=== PATIENT | female | born 1940 | race Caucasian/White ===

== ENCOUNTER 2020-09-15 06:33 | Inpatient (IN) | payer MEDICARE ==
[2020-09-15] MEDS ORDERED: Isosulfan Blue 5 ML SDV ONE (06:43)
[2020-09-15] MEDS ORDERED: Acetaminophen 500 MG Tab PO ONE (06:45)
[2020-09-15] MEDS ORDERED: Dextrose 5%-Lactated Ringers 1,000 ML IV SCH (07:00)
[2020-09-15] MEDS ORDERED: Glycopyrrolate 0.2 MG/ML 5 ML MDV ONE (07:11)
[2020-09-15] MEDS ORDERED: Succinylcholine 200 MG/10 ML MDV ONE (07:11)
[2020-09-15] MEDS ORDERED: fentaNYL 250 MCG/5 ML SDV ONE (07:11)
[2020-09-15] MEDS ORDERED: Neostigmine Methylsulfate 1 MG/ML 5 ML Syringe ONE (07:11)
[2020-09-15] MEDS ORDERED: Propofol 200 MG/20 ML SDV ONE (07:11)
[2020-09-15] MEDS ORDERED: Rocuronium 50 MG/5 ML Vial ONE (07:11)
[2020-09-15] MEDS ORDERED: Dexamethasone 4 MG/ML SDV ONE (07:11)
[2020-09-15] MEDS ORDERED: Ondansetron 4 MG/2 ML SDV ONE (07:11)
[2020-09-15] MEDS ORDERED: Ondansetron 4 MG/2 ML SDV IVPUSH PRN ×2 (07:39→12:00)
[2020-09-15] MEDS ORDERED: HYDROmorphone/Normal Saline 15 MG/30 ML PCA IV PRN (07:39)
[2020-09-15] MEDS ORDERED: diphenhydrAMINE 25 MG Cap PO PRN (07:39)
[2020-09-15] MEDS ORDERED: diphenhydrAMINE 50 MG/ML SDV IVPUSH PRN (07:39)
[2020-09-15] MEDS ORDERED: Naloxone 0.4 MG/ML SDV IVPUSH PRN (07:39)
[2020-09-15] MEDS ORDERED: ceFAZolin 2 GM in Premix Bag 1 BAG IV ONE (08:00)
[2020-09-15] MEDS ORDERED: Mupirocin Oint 22 GM Tube ONE (09:26)
[2020-09-15] MEDS: ceFAZolin 2 GM in Premix Bag 1 BAG IV SCH (16:04)
[2020-09-15] MEDS: Acetaminophen 325 MG Tab PO SCH ×2 (16:06→23:14)
[2020-09-16] MEDS: ceFAZolin 2 GM in Premix Bag 1 BAG IV SCH ×2 (00:22→09:16)
[2020-09-16] MEDS: Acetaminophen 325 MG Tab PO SCH ×4 (03:59→21:36)
[2020-09-16] MEDS ORDERED: HYDROmorphone 2 MG Tab PO PRN (07:14)
[2020-09-16] MEDS ORDERED: Ondansetron 4 MG Tab.DIS PO PRN (07:16)
--- NOTE | 2020-09-16 08:11 | PN ---
DATE OF SERVICE: 09/16/2020 SUBJECTIVE: Bibi is postoperative day 1. Pain has been controlled with MOLDER BENCH. Vital signs stable, up ambulating. Oral intake 780. Urine output 1400. ERWIN drains have put out 60 and 17 respectively of a light red drainage. REVIEW OF SYSTEMS: Remainder of review of systems negative for any pertinent positives and negatives. OBJECTIVE: GENERAL: Bibi Tabares is a pleasant 80-year-old female. VITAL SIGNS: TRP is 96.4, 78, 16. Blood pressure 121/58. HEENT: Negative. NECK: Supple. HEART: Regular rate and rhythm. LUNGS: Clear. Dressing dry and intact. The Andrew bandage was cutting into her neck on the right side, so that was taken down around her neck only and secured, so it did not bother her so much. ERWIN drains as above. EXTREMITIES: Negative. ASSESSMENT: Left modified radical mastectomy with sentinel lymph node biopsies for carcinoma of left breast. Date of procedure 09/15/2020. Surgeon: Servando Escobar MD. PLAN: 1. Regular diet. 2. Discontinue MOLDER BENCH. 3. Dilaudid 2 to 4 mg every 4 hours p.r.n. pain. 4. Zofran ODT 4 mg every 4 hours p.r.n. nausea, vomiting. 5. Communication order to teach patient to strip, empty, measure and record ERWIN drains 4 times daily. 6. Discontinue continuous pulse ox. 7. We will evaluate p.r.n. or in a.m. Caitlin Fischer PA-C /[id number]
[2020-09-16] MEDS: Levothyroxine 25 MCG, Levothyroxine 50 MCG PO SCH ×2 (08:55)
[2020-09-16] MEDS: Metoprolol Tartrate 50 MG Tab PO SCH (08:56)
[2020-09-16] MEDS: Hydrochlorothiazide 25 MG Tab PO SCH (08:56)
[2020-09-16] MEDS: Apixaban 5 MG Tab PO SCH ×2 (08:56→21:36)
[2020-09-16] MEDS: Sertraline 50 MG Tab PO SCH (08:57)
[2020-09-17] MEDS: Acetaminophen 325 MG Tab PO SCH ×2 (04:27→10:16)
[2020-09-17] MEDS: Levothyroxine 25 MCG, Levothyroxine 50 MCG PO SCH ×2 (07:26)
[2020-09-17] MEDS: Sertraline 50 MG Tab PO SCH (08:50)
[2020-09-17] MEDS: Apixaban 5 MG Tab PO SCH (08:50)
[2020-09-17] MEDS: Metoprolol Tartrate 50 MG Tab PO SCH (08:52)
[2020-09-17] MEDS: Hydrochlorothiazide 25 MG Tab PO SCH (08:52)
--- NOTE | 2020-09-17 20:58 | DISCH ---
ADMISSION DIAGNOSES: 1. Left breast carcinoma. 2. Hypothyroidism. 3. Essential hypertension. 4. Aortic valve stenosis. 5. History of Tamika-en-Y gastric bypass surgery. DISCHARGE DIAGNOSIS: Left modified radical mastectomy with sentinel lymph node biopsy for carcinoma of left breast. Date of procedure, 09/15/2020. Surgeon: Servando Escobar MD. HISTORY: Bibi Tabares is a pleasant 80-year-old female with left breast cancer. After preoperative evaluation and discussion of possible risks and possible complications, she wished to proceed with surgical procedure. HOSPITAL COURSE: Bibi had her surgery on 09/15/2020. She had no operative complications. On postoperative day #1, she was started on a regular diet. B AND B GANG WORKER was discontinued. She was started on oral Dilaudid and she was taught how to do home ERWIN drain care. On postoperative day 2, Bibi was taking Tylenol for pain, up ambulating. She demonstrated that she could do the home ERWIN drain care and she was able to be discharged to home without any complications. PHYSICAL EXAMINATION: GENERAL: Bibi Tabares is a pleasant 80-year-old female. VITAL SIGNS: Height is 5 feet 4 inches, weight is 195 pounds. TPR is 96.1, 79, 16. Blood pressure is 109/56. HEENT: Negative. NECK: Supple. HEART: Regular rate and rhythm. LUNGS: Clear. Left stapled mastectomy incision looks good. There is no hematoma. 2 ERWIN drains are intact draining a red drainage and they have put out 65 and 10 respectively of a dark red drainage. ABDOMEN: Soft and nontender. EXTREMITIES: Without peripheral edema. DISPOSITION: Discharged to home. CONDITION: Stable and improving. FOLLOWUP APPOINTMENTS: With Caitlin Fischer PA-C, on 09/25/2020 at 9:15 a.m. HOME MEDICATIONS: 1. Tylenol 650 mg oral q.6 hours p.r.n. pain. 2. Eliquis 5 mg b.i.d. 3. Vitamin D 50 mcg mg oral monthly. 4. Ferrous sulfate 325 mg oral 3 times a week. 5. Levothyroxine 75 mcg mg oral before breakfast. 6. Metoprolol tartrate 50 mg oral daily. 7. Multivitamin 1 tablet oral daily. 8. Sertraline 100 mg oral daily. 9. Hydrochlorothiazide 25 mg oral daily. DIET: Usual diet as tolerated. Drink 8 to 10 glasses of water a day. ACTIVITY: No lifting greater than 10 pounds for 6 weeks. OTHER ACTIVITY: Walk 6 times daily inside your home. Driving: Do not drive for 1 week or within 6 hours of taking narcotic medication. Shower/bathing: May shower. DISCHARGE INSTRUCTIONS: Notify provider if any fever, increased pain, swelling, redness, drainage, nausea, or vomiting. Keep site clean and dry. Wound incision care: Strip, empty, measure, and record ERWIN drains 4 times a day. Bring record of drainage to clinic appointments. Use incentive spirometer 10 times every hour while awake. /[id number]
--- NOTE | 2020-09-22 12:52 | OR ---
DATE OF PROCEDURE: 09/15/2020 SURGEON: Servando Escobar MD PREOPERATIVE DIAGNOSIS: Carcinoma, left breast. POSTOPERATIVE DIAGNOSIS: Carcinoma, left breast. OPERATIVE PROCEDURES: 1. Left modified radical mastectomy with sentinel lymph node biopsy ([id number]). 2. Injection procedure for identification of sentinel lymph nodes ([id number]). ANESTHESIA: General. PLANT CULTURE MANAGER: Caitlin Fischer PA-C INDICATIONS FOR PROCEDURE: This is an 80-year-old presenting with a recently diagnosed invasive ductal carcinoma. Plan is to proceed with a modified radical mastectomy with sentinel lymph node biopsy. Potential risks including bleeding and infection, local or distant tumor recurrence, need for additional treatment such as radiation treatment and/or chemotherapy along with remote possibility of cardiopulmonary, septic, or hemorrhagic complications leading to were discussed, and the patient wishes to proceed. DETAILS OF PROCEDURE: The patient was taken to the operating room, and after general endotracheal anesthesia was induced and the left breast and surrounding areas were prepped and draped, 4 mL of isosulfan blue dye was injected into the periareolar area and area along the biopsy site. Transversely oriented elliptical incision was then made and carried down through the skin, subcutaneous tissue, and subcutaneous flaps were then raised superiorly, laterally, inferiorly, and medially to the usual extent. Breast was then reflected off the chest wall in continuity with pectoralis major fascia. At no point there appeared to be an impingement of the tumor at the level of the dissection. Grouping of sentinel nodes was then evident in the lateral aspect of the incision and these were excised with the aid of electrocautery and sent as a separate specimen. The sentinel lymph nodes did not appear to have metastatic carcinoma within them. The area of dissection was then inspected. No bleeding or other problems were noted. Two Rigoberto-Law drains were then placed through stab wounds inferior to the main incision and positioned adjacent to the axillary dissection and the incision was closed with some 4-0 and 5-0 Vicryl stitch deep and latanya for the skin. Drains were fixed with some 4-0 Vicryl stitch as well. The patient was taken to the recovery room in satisfactory condition. There were no evident complications. Servando Escobar MD /[id number]
== END 2020-09-17 14:00 | disposition home or self-care (01) | DRG 582 ==
LOC: JP.SDS 06:33 → JP.MS 09:50 → JP.SDS 09-16 06:30
PROVIDERS: ADMIT Surgery; ATTEND Surgery
PROC: 0HTU0ZZ Resection of Left Breast, Open Approach (ICD-10-PCS; principal; 2020-09-16)
DX: C50.912 Malignant neoplasm of unspecified site of left female breast (principal); I48.20 Chronic atrial fibrillation, unspecified; E03.9 Hypothyroidism, unspecified; I10 Essential (primary) hypertension; I35.8 Other nonrheumatic aortic valve disorders; Z98.84 Bariatric surgery status; Z79.899 Other long term (current) drug therapy; Z79.890 Hormone replacement therapy; Z90.89 Acquired absence of other organs; Z90.49 Acquired absence of other specified parts of digestive tract; Z98.49 Cataract extraction status, unspecified eye; Z79.01 Long term (current) use of anticoagulants; Z88.8 Allergy status to other drugs, medicaments and biological substances; Z88.5 Allergy status to narcotic agent
CPT/HCPCS: 36415; 80053; 83735; 83880; 84100; 85027; 86300; 94762; 97530-GP; A9270-GY; J0330; J0690; J1100; J1170; J2405; J2704; J2710; J3010; J3480; J3490; J7121; Q9968

== ENCOUNTER 2021-08-21 16:01 | Emergency (ER) | payer MEDICARE ==
[2021-08-21] MEDS ORDERED: Lactated Ringers 1,000 ML IV ONE (16:20)
[2021-08-21] MEDS ORDERED: Sodium Chloride 0.9% 10 ML Syringe FLUSH PRN (16:20)
--- NOTE | 2021-08-21 16:42 | EDM.PDOC ---
ED HPI GENERAL MEDICAL PROBLEM - General Chief Complaint: Cardiovascular Problem Stated Complaint: [facility] Time Seen by Provider: 08/21/21 16:30 Source of Information: Reports: Patient, EMS, Old Records, RN History Limitations: Reports: No Limitations - History of Present Illness INITIAL COMMENTS - FREE TEXT/NARRATIVE: 81 yo female was playing cards with her friends today and noted that whenever she tried to stand up she would almost pass out. At one point she slumped over the table and felt like she needed to sleep. Her friends say she was not responding. She has chronic afib, but denies any recent fever, CP, diarrhea, vomiting or bloody stools. Her BP in her doctor's office when last checked was around 100 systolic. Onset: Today, Sudden Onset Date: 08/21/21 Duration: Minutes: Location: Reports: Generalized Quality: Reports: Other (denies pain) Severity: Moderate Improves with: Reports: Other (sitting or lying) Worsens with: Reports: Other (standing) Context: Reports: Other (See HPI) Associated Symptoms: Reports: Syncope (near syncope). Denies: Diaphoresis, Fever/Chills Treatments MACHINERY DISMANTLER: Reports: Other (see below) (none) - Related Data Allergies Allergy/AdvReac Type Severity Reaction Status Date / Time shellfish derived Allergy Severe Anaphylactic Verified 08/21/21 16:16 Shock morphine Allergy Lethargy Verified 08/21/21 16:16 Home Meds: Home Meds Apixaban [Eliquis] 5 mg PO BID 09/01/20 [History] Ergocalciferol (Vitamin D2) [Vitamin D2] 1,250 mcg PO .MONTHLY 09/01/20 [History] Ferrous Sulfate 325 mg PO .THREE TIMES WEEKLY 09/01/20 [History] Levothyroxine 75 mcg PO ACBREAKFAST 09/01/20 [History] Metoprolol Tartrate 50 mg PO DAILY 09/01/20 [History] Multivitamin [Multiple Vitamins] 1 tab PO DAILY 09/01/20 [History] Sertraline [Zoloft] 100 mg PO DAILY 09/01/20 [History] hydroCHLOROthiazide [Hydrochlorothiazide] 25 mg PO DAILY 09/01/20 [History] Acetaminophen [Tylenol] 650 mg PO Q6H tablet 09/17/20 [Rx] cephALEXin [Cephalexin] 500 mg PO TID #14 tablet 08/21/21 [Rx] Past Medical History HEENT History: Reports: Cataract Cardiovascular History: Reports: Afib Respiratory History: Reports: Other (See Below) Other Respiratory History: seasonal allergies Gastrointestinal History: Reports: None Genitourinary History: Reports: None SQUASH CENTRE MANAGER History: Reports: , Spontaneous Musculoskeletal History: Reports: Arthritis Neurological History: Reports: None Psychiatric History: Reports: None Endocrine/Metabolic History: Reports: Hypothyroidism, Obesity/BMI 30+ Hematologic History: Reports: Anticoagulation Therapy Immunologic History: Reports: None Oncologic (Cancer) History: Reports: Breast - Infectious Disease History Infectious Disease History: Reports: Measles - Past Surgical History Head Surgeries/Procedures: Reports: None HEENT Surgical History: Reports: Adenoidectomy, Tonsillectomy Cardiovascular Surgical History: Reports: None Respiratory Surgical History: Reports: None GI Surgical History: Reports: Appendectomy, Cholecystectomy, Other (See Below) Other GI Surgeries/Procedures: gastric bypass Female Surgical History: Reports: Hysterectomy Endocrine Surgical History: Reports: None Musculoskeletal Surgical History: Reports: None Oncologic Surgical History: Reports: Mastectomy Other Oncologic Surgeries/Procedures: left Dermatological Surgical History: Reports: None Social & Family History - Tobacco Use Tobacco Use Status *Q: Never Tobacco User Second Hand Smoke Exposure: No - Caffeine Use Caffeine Use: Reports: None - Recreational Drug Use Recreational Drug Use: No ED ROS GENERAL - Review of Systems Review Of Systems: See Below Constitutional: Reports: No Symptoms HEENT: Reports: No Symptoms Respiratory: Reports: No Symptoms Cardiovascular: Reports: Lightheadedness Endocrine: Reports: No Symptoms GI/Abdominal: Reports: No Symptoms : Reports: No Symptoms Musculoskeletal: Reports: No Symptoms Skin: Reports: No Symptoms Neurological: Reports: No Symptoms Psychiatric: Reports: No Symptoms ED EXAM, GENERAL - Physical Exam Exam: See Below Exam Limited By: No Limitations General Appearance: Alert, WD/WN, No Apparent Distress, Obese Eye Exam: Bilateral Eye: Normal Inspection Ears: Normal External Exam, Normal Canal, Hearing Grossly Normal Ear Exam: Bilateral Ear: Auricle Normal, Canal Normal Nose: Normal Inspection, No Blood Throat/Mouth: Normal Inspection, Normal Lips, Normal Oropharynx, Normal Voice, No Airway Compromise Head: Atraumatic, Normocephalic Neck: Normal Inspection, Supple, Non-Tender Respiratory/Chest: No Respiratory Distress, Lungs Clear, Normal Breath Sounds, No Accessory Muscle Use Cardiovascular: Regular Rate, Rhythm, No Edema GI/Abdominal: Normal Bowel Sounds, Soft, No Distention. No: Distended Extremities: Normal Inspection, Normal Range of Motion, Non-Tender, No Pedal Edema Neurological: Alert, Oriented, CN II-XII Intact, Normal Cognition, No Motor/Sensory Deficits Psychiatric: Normal Affect, Normal Mood Skin Exam: Warm, Dry, Intact, Normal Color, No Rash Course - Vital Signs Last Recorded V/S: Last Vital Signs Temp 36.0 C L 08/21/21 16:05 Pulse 75 08/21/21 16:18 Resp 13 08/21/21 16:18 BP 106/51 L 08/21/21 16:18 Pulse Ox 94 L 08/21/21 16:18 Orthostatic Blood Pressure [ 122/71 Standing] Orthostatic Blood Pressure [ 124/70 Sitting] Orthostatic Blood Pressure [ 126/72 Supine] - Orders/Labs/Meds Orders: Active Orders 24 hr Category Date Time Status Orthostatic Vital Signs [RC] ASDIRECTED Care 08/21/21 17:39 Active CULTURE URINE [RM] Stat Lab 08/21/21 17:57 Ordered Sodium Chloride 0.9% [Saline Flush] Med 08/21/21 16:20 Active 10 ml FLUSH ASDIRECTED PRN Saline Lock Insert [OM.PC] Routine Oth 08/21/21 16:20 Ordered Medication Orders Sodium Chloride (Sodium Chloride 0.9% 10 Ml Syringe) 10 ml FLUSH ASDIRECTED PRN PRN Reason: Keep Vein Open Last Admin: 08/21/21 16:37 Dose: 10 ml Documented by: GENARO Labs: Laboratory Tests 08/21/21 08/21/21 08/21/21 Range/Units 16:20 16:20 16:37 WBC 5.6 (4.5-11.0) K/uL RBC 3.85 (3.30-5.50) M/uL Hgb 12.8 (12.0-15.0) g/dL Hct 39.0 (36.0-48.0) % MCV 101 H (80-98) fL MCH 33 H (27-31) pg MCHC 33 (32-36) % Plt Count 197 (150-400) K/uL Sodium 139 L (140-148) mmol/L Potassium 3.4 L (3.6-5.2) mmol/L Chloride 100 (100-108) mmol/L Carbon Dioxide 31 (21-32) mmol/L Anion Gap 11.4 (5.0-14.0) mmol/L BUN 15 (7-18) mg/dL Creatinine 0.8 (0.6-1.0) mg/dL Est Cr Clr Drug Dosing 47.62 mL/min Estimated GFR (MDRD) > 60 (>60) Glucose 97 (74-106) mg/dL Calcium 8.4 L (8.5-10.1) mg/dL Magnesium 2.0 (1.8-2.4) mg/dL Troponin I < 0.017 (0.000-0.056) ng/mL Urine Color (YELLOW) Urine Appearance (CLEAR) Urine pH (5.0-8.0) Ur Specific [place] (1.008-1.030) Urine Protein (NEGATIVE) mg/dL Urine Glucose (UA) (NEGATIVE) mg/dL Urine Ketones (NEGATIVE) mg/dL Urine Occult Blood (NEGATIVE) Urine Nitrite (NEGATIVE) Urine Bilirubin (NEGATIVE) Urine Urobilinogen (0.2-1.0) EU/dL Ur Leukocyte Esterase (NEGATIVE) Urine RBC (0-5) Urine WBC (0-5) Ur Epithelial Cells Amorphous Sediment Urine Bacteria Urine Mucus 08/21/21 Range/Units 17:39 WBC (4.5-11.0) K/uL RBC (3.30-5.50) M/uL Hgb (12.0-15.0) g/dL Hct (36.0-48.0) % MCV (80-98) fL MCH (27-31) pg MCHC (32-36) % Plt Count (150-400) K/uL Sodium (140-148) mmol/L Potassium (3.6-5.2) mmol/L Chloride (100-108) mmol/L Carbon Dioxide (21-32) mmol/L Anion Gap (5.0-14.0) mmol/L BUN (7-18) mg/dL Creatinine (0.6-1.0) mg/dL Est Cr Clr Drug Dosing mL/min Estimated GFR (MDRD) (>60) Glucose (74-106) mg/dL Calcium (8.5-10.1) mg/dL Magnesium (1.8-2.4) mg/dL Troponin I (0.000-0.056) ng/mL Urine Color Yellow (YELLOW) Urine Appearance Slightly cloudy A (CLEAR) Urine pH 6.0 (5.0-8.0) Ur Specific [place] 1.020 (1.008-1.030) Urine Protein 30 H (NEGATIVE) mg/dL Urine Glucose (UA) Negative (NEGATIVE) mg/dL Urine Ketones Negative (NEGATIVE) mg/dL Urine Occult Blood Small H (NEGATIVE) Urine Nitrite Negative (NEGATIVE) Urine Bilirubin Negative (NEGATIVE) Urine Urobilinogen 0.2 (0.2-1.0) EU/dL Ur Leukocyte Esterase Large H (NEGATIVE) Urine RBC 5-10 H (0-5) Urine WBC 20-30 H (0-5) Ur Epithelial Cells Moderate Amorphous Sediment Not seen Urine Bacteria Many Urine Mucus Few Meds: Medications Generic Name Dose Route Start Last Admin Trade Name Freq PRN Reason Stop Dose Admin Sodium Chloride 10 ml 08/21/21 16:20 08/21/21 16:37 Sodium Chloride 0.9% 10 Ml Syringe FLUSH 10 ml ASDIRECTED PRN Administration Keep Vein Open Discontinued Medications Generic Name Dose Route Start Last Admin Trade Name Freq PRN Reason Stop Dose Admin Cephalexin 500 mg 08/21/21 17:58 Cephalexin 250 Mg Cap PO 08/21/21 17:59 ONETIME ONE Lactated Ringer's 1,000 mls @ 999 mls/hr 08/21/21 16:20 08/21/21 16:36 Ringers, Lactated IV 08/21/21 17:20 999 mls/hr BOLUS ONE Administration Potassium Chloride 40 meq 08/21/21 17:12 08/21/21 17:17 Potassium Chloride 20 Meq Tab.Er PO 08/21/21 17:13 40 meq ONETIME ONE Administration Departure - Departure Time of Disposition: 18:10 Disposition: Home, Self-Care 01 Condition: Fair Clinical Impression: Cystitis, Orthostatic hypotension Prescriptions: cephALEXin [Cephalexin] 500 mg PO TID #14 tablet Referrals: PCP,None [Primary Care Provider] - Forms: ED Department Discharge Additional Instructions: Take cephalexin every 8 hrs. Reduce your HCTZ to one every other morning. Recheck with your provider early next week. Return as needed. Sepsis Event Note (ED) - Focused Exam Vital Signs: Vital Signs Temp Pulse Resp BP Pulse Ox 08/21/21 16:18 75 13 106/51 L 94 L 08/21/21 16:05 36.0 C L 74 16 100/54 L 94 L 08/21/21 16:02 36.0 C L 74 16 100/54 L 94 L - My Orders Last 24 Hours: My Active Orders 08/21/21 16:20 Sodium Chloride 0.9% [Saline Flush] 10 ml FLUSH ASDIRECTED PRN Saline Lock Insert [OM.PC] Routine 08/21/21 17:39 Orthostatic Vital Signs [RC] ASDIRECTED 08/21/21 17:57 CULTURE URINE [RM] Stat - Assessment/Plan Last 24 Hours: My Active Orders 08/21/21 16:20 Sodium Chloride 0.9% [Saline Flush] 10 ml FLUSH ASDIRECTED PRN Saline Lock Insert [OM.PC] Routine 08/21/21 17:39 Orthostatic Vital Signs [RC] ASDIRECTED 08/21/21 17:57 CULTURE URINE [RM] Stat
[2021-08-21] MEDS ORDERED: Potassium Chloride 20 MEQ Tab.ER PO ONE (17:12)
[2021-08-21] MEDS ORDERED: Cephalexin 250 MG Cap PO ONE (17:58)
== END 2021-08-21 18:14 | disposition home or self-care (01) ==
LOC: JP.ED 16:01
DX: I95.1 Orthostatic hypotension (principal); N30.90 Cystitis, unspecified without hematuria; I48.91 Unspecified atrial fibrillation; M19.90 Unspecified osteoarthritis, unspecified site; E03.9 Hypothyroidism, unspecified; E66.9 Obesity, unspecified; Z68.33 Body mass index [BMI] 33.0-33.9, adult; Z91.013 Allergy to seafood; Z88.5 Allergy status to narcotic agent; Z79.01 Long term (current) use of anticoagulants; Z79.899 Other long term (current) drug therapy
CPT/HCPCS: 36415; 80048; 81001; 83735; 84484; 85027; 87086; 99285; A9270; J7120

== ENCOUNTER 2021-10-19 01:55 | Emergency (ER) | payer MEDICARE ==
[2021-10-19] MEDS ORDERED: fentaNYL 100 MCG/2 ML SDV IVPUSH ONE ×2 (02:17→03:27)
--- NOTE | 2021-10-19 02:22 | EDM.PDOC ---
ED HPI GENERAL MEDICAL PROBLEM - General Chief Complaint: Abdominal Pain Stated Complaint: [facility] Time Seen by Provider: 10/19/21 02:00 Source of Information: Reports: Patient, EMS History Limitations: Reports: No Limitations - History of Present Illness INITIAL COMMENTS - FREE TEXT/NARRATIVE: 81-year-old female arrives with abdominal pain that has been increasing for the past 48 hours. She initially thought it was constipation so took some MiraLAX, has had some loose stools since then but now she feels bloated, distended, and has diffuse abdominal pain especially the left side. No back pain, some nausea but no vomiting. She has a history of a Tamika-en-Y 22 years ago, they took her gallbladder out at that time and she had an appendectomy as a child. She is usually healthy, other than atrial fibrillation which is chronic. She is on anticoagulants. Onset: Gradual Duration: Day(s): (Symptoms have been worsening for the past 2 days) Location: Reports: Abdomen Quality: Reports: Pressure, Sharp, Stabbing Improves with: Reports: Movement Associated Symptoms: Reports: Malaise, Other (Nausea but no vomiting). Denies: Confusion, Chest Pain, Fever/Chills, Shortness of Breath lower abd pain Pain Score (Numeric/FACES): 8 - Related Data Allergies Allergy/AdvReac Type Severity Reaction Status Date / Time shellfish derived Allergy Severe Anaphylactic Verified 10/19/21 02:09 Shock morphine Allergy Lethargy Verified 10/19/21 02:09 Home Meds: Home Meds Apixaban [Eliquis] 5 mg PO BID 09/01/20 [History] Ergocalciferol (Vitamin D2) [Vitamin D2] 1,250 mcg PO .MONTHLY 09/01/20 [History] Ferrous Sulfate 325 mg PO .THREE TIMES WEEKLY 09/01/20 [History] Levothyroxine 75 mcg PO ACBREAKFAST 09/01/20 [History] Metoprolol Tartrate 50 mg PO DAILY 09/01/20 [History] Multivitamin [Multiple Vitamins] 1 tab PO DAILY 09/01/20 [History] Sertraline [Zoloft] 100 mg PO DAILY 09/01/20 [History] hydroCHLOROthiazide [Hydrochlorothiazide] 25 mg PO DAILY 09/01/20 [History] Acetaminophen [Tylenol] 650 mg PO Q6H tablet 09/17/20 [Rx] Past Medical History HEENT History: Reports: Cataract Cardiovascular History: Reports: Afib, Heart Murmur, Other (See Below) Other Cardiovascular History: aortic stenosis Respiratory History: Reports: Other (See Below) Other Respiratory History: seasonal allergies Gastrointestinal History: Reports: None Genitourinary History: Reports: None [employer] History: Reports: , Spontaneous Musculoskeletal History: Reports: Arthritis Neurological History: Reports: None Psychiatric History: Reports: None Endocrine/Metabolic History: Reports: Hypothyroidism, Obesity/BMI 30+ Hematologic History: Reports: Anticoagulation Therapy Immunologic History: Reports: None Oncologic (Cancer) History: Reports: Breast - Infectious Disease History Infectious Disease History: Reports: Measles - Past Surgical History Head Surgeries/Procedures: Reports: None HEENT Surgical History: Reports: Adenoidectomy, Tonsillectomy Cardiovascular Surgical History: Reports: None Respiratory Surgical History: Reports: None GI Surgical History: Reports: Appendectomy, Bariatric Procedure, Cholecystectomy, Other (See Below) Other GI Surgeries/Procedures: gastric bypass Female Surgical History: Reports: Hysterectomy Endocrine Surgical History: Reports: None Musculoskeletal Surgical History: Reports: None Oncologic Surgical History: Reports: Mastectomy Other Oncologic Surgeries/Procedures: left Social & Family History - Tobacco Use Tobacco Use Status *Q: Never Tobacco User - Caffeine Use Caffeine Use: Reports: None - Recreational Drug Use Recreational Drug Use: No ED ROS GENERAL - Review of Systems Review Of Systems: See Below Constitutional: Reports: Malaise, Decreased Appetite. Denies: Fever, Chills HEENT: Reports: No Symptoms Respiratory: Denies: Shortness of Breath Cardiovascular: Denies: Chest Pain, Palpitations GI/Abdominal: Reports: Abdominal Pain, Diarrhea, Nausea. Denies: Hematemesis, Hematochezia, Vomiting : Reports: No Symptoms Musculoskeletal: Reports: No Symptoms Skin: Reports: No Symptoms Neurological: Reports: No Symptoms ED EXAM, GI/ABD - Physical Exam Exam: See Below Exam Limited By: No Limitations General Appearance: Alert, Mild Distress Eyes: Bilateral: Normal Appearance (No jaundice) Head: Atraumatic Neck: Limited Range of Motion Respiratory/Chest: Lungs Clear Cardiovascular: Systolic Murmur, Irregularly Irregular GI/Abdominal Exam: Soft, Tender (Tender with guarding generally across the abdomen, worse on the left side and periumbilical area) Neurological: Alert, Oriented, No Motor/Sensory Deficits Psychiatric: Anxious Skin Exam: Warm, Dry Course - Vital Signs Last Recorded V/S: Last Vital Signs Temp 97.9 F 10/19/21 04:16 Pulse 83 10/19/21 04:16 Resp 14 10/19/21 04:16 BP 152/86 H 10/19/21 04:16 Pulse Ox 100 10/19/21 04:16 - Orders/Labs/Meds Labs: Laboratory Tests 10/19/21 10/19/21 10/19/21 Range/Units 02:23 02:23 02:23 WBC 9.9 (4.5-11.0) K/uL RBC 4.40 (3.30-5.50) M/uL Hgb 14.3 (12.0-15.0) g/dL Hct 43.5 (36.0-48.0) % MCV 99 H (80-98) fL MCH 33 H (27-31) pg MCHC 33 (32-36) % Plt Count 246 (150-400) K/uL Neut % (Auto) 80.6 H (36-66) % Lymph % (Auto) 12.7 L (24-44) % [place] % (Auto) 5.6 (2-6) % Eos % (Auto) 0.3 L (2-4) % Baso % (Auto) 0.8 (0-1) % Sodium 139 L (140-148) mmol/L Potassium 3.9 (3.6-5.2) mmol/L Chloride 102 (100-108) mmol/L Carbon Dioxide 26 (21-32) mmol/L Anion Gap 14.9 H (5.0-14.0) mmol/L BUN 17 (7-18) mg/dL Creatinine 0.8 (0.6-1.0) mg/dL Est Cr Clr Drug Dosing 49.63 mL/min Estimated GFR (MDRD) > 60 (>60) Glucose 134 H (74-106) mg/dL Lactic Acid 1.3 (0.4-2.0) mmol/L Calcium 9.0 (8.5-10.1) mg/dL Total Bilirubin 0.5 (0.2-1.0) mg/dL AST 18 (15-37) U/L ALT 20 (12-78) U/L Alkaline Phosphatase 72 (46-116) U/L Total Protein 7.5 (6.4-8.2) g/dL Albumin 3.5 (3.4-5.0) g/dL Globulin 4.0 H (2.3-3.5) g/dL Albumin/Globulin Ratio 0.9 L (1.2-2.2) Lipase 70 L (73-393) U/L Meds: Medications Discontinued Medications Generic Name Dose Route Start Last Admin Trade Name Lyubov PRN Reason Stop Dose Admin Fentanyl 25 mcg 10/19/21 02:17 10/19/21 02:30 Fentanyl 100 Mcg/2 Ml Sdv IVPUSH 10/19/21 02:18 25 mcg ONETIME ONE Administration Fentanyl 50 mcg 10/19/21 03:27 10/19/21 03:53 Fentanyl 100 Mcg/2 Ml Sdv IVPUSH 10/19/21 03:28 50 mcg ONETIME ONE Administration Sodium Chloride 1,000 mls @ 500 mls/hr 10/19/21 02:30 10/19/21 03:05 Normal Saline IV 500 mls/hr ASDIRECTED ROMAINE Administration Piperacillin Sod/Tazobactam 50 mls @ 100 mls/hr 10/19/21 04:17 10/19/21 04:27 Sod 2.25 gm/ Sodium Chloride IV 10/19/21 04:46 100 mls/hr ONETIME ONE Administration Ondansetron HCl 4 mg 10/19/21 02:23 10/19/21 02:27 Ondansetron 4 Mg/2 Ml Sdv IVPUSH 10/19/21 02:24 4 mg ONETIME ONE Administration - Re-Assessments/Exams Free Text/Narrative Re-Assessment/Exam: 10/19/21 02:21 An IV will be started, she will be given 500 cc of normal saline an hour along with 25 mcg of fentanyl. CBC, CMP, lipase and lactic acid drawn and a CT of the abdomen and pelvis will be needed. 10/19/21 03:45 IMPRESSIONS: 1. Severe gas and fluid distention of a loop of colon is seen within the pelvis with a narrowed transition and swirled mesenteric vessels seen in the right lower quadrant on image 118. 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 2. Calcifications of the aortic valve are noted. Correlation with physical exam is recommended to exclude aortic stenosis. A copy of this report was faxed to Dr. Mccallum at approximately 3:32 AM. 10/19/21 04:20 Above report was discussed with our local surgeon and housekeeping director, which is simply do not have the critical care bed space to care for this patient. [facility] was consulted and Dr. Raphael kindly accepted the patient for transfer. She was given 2.275 mg of Zosyn prophylactically, and a second dose of fentanyl 50 mcg. She continued to be significantly uncomfortable. Patient will be transferred urgently. Departure - Departure Time of Disposition: 04:38 Disposition: DC/Tfer to Other 70 Clinical Impression: Cecal volvulus Abdominal pain Qualifiers: Abdominal location: generalized Qualified Code(s): R10.84 - Generalized abdominal pain - Discharge Information Referrals: PCP,None [Primary Care Provider] - Forms: ED Department Discharge Care Plan Goals: Patient will be transferred to [facility] in an urgent manner for further evaluation and definitive treatment and surgical release of the cecal volvulus. Sepsis Event Note (ED) - Evaluation Sepsis Screening Result: No Definite Risk - Focused Exam Vital Signs: Vital Signs Temp Pulse Resp BP Pulse Ox 10/19/21 04:16 97.9 F 83 14 152/86 H 100 10/19/21 02:12 97.5 F 92 14 166/98 H 96 10/19/21 01:56 97.5 F 92 14 166/98 H 96
[2021-10-19] MEDS ORDERED: Ondansetron 4 MG/2 ML SDV IVPUSH ONE (02:23)
[2021-10-19] MEDS ORDERED: Sodium Chloride 0.9% 1,000 ML IV SCH (02:30)
--- NOTE | 2021-10-19 03:32 | CRLCT ---
For Patients: As a result of the Century Cures Act, medical imaging exams and procedure reports are released immediately into your electronic medical record. You may view this report before your referring provider. If you have questions, please contact your health care provider. INDICATION: Abdominal pain for 2 days TECHNIQUE: CT Abdomen and pelvis without i.v. contrast. Coronal and sagittal reformats were obtained. COMPARISON: None FINDINGS: Lower chest: Mild basilar linear scarring or atelectasis is seen. Mild atherosclerotic calcifications are noted in the coronary arteries. Calcifications of the aortic valve are noted. Liver: Unremarkable. Spleen: Unremarkable. Pancreas: Unremarkable. Gallbladder: Previous cholecystectomy noted with extrahepatic biliary ductal dilatation seen. Kidney: Unremarkable. No kidney or ureteral stones or obstruction seen. Adrenal: Unremarkable. Bowel: The common bowel duct measures 12 mm. Previous antegastric-antecolic gastric bypass noted with no definite obstruction of the biliopancreatic limb or Tamika-en-Y loop seen. Severe gas and fluid distention of a loop of colon is seen within the pelvis with a narrowed transition and swirled mesenteric vessels seen in the right lower quadrant on image 118. Previous appendectomy noted with no significant appendiceal stump identified. The appendix is not identified. Vascular: Moderate diffuse atherosclerotic calcifications of the abdominal aorta and its tributaries are present. Lymph: Unremarkable. Peritoneum: Unremarkable. No pneumoperitoneum is seen. A small amount of ascites is seen. Pelvis: The patient is status post hysterectomy. Soft tissue: Unremarkable. Bone: Unremarkable for age. IMPRESSIONS: 1. Severe gas and fluid distention of a loop of colon is seen within the pelvis with a narrowed transition and swirled mesenteric vessels seen in the right lower quadrant on image 118. 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 2. Calcifications of the aortic valve are noted. Correlation with physical exam is recommended to exclude aortic stenosis. A copy of this report was faxed to Dr. Mccallum at approximately 3:32 AM. Dictated by Jonathan Khan MD @ 10/19/2021 3:31:50 AM Please note that all CT scans at this facility use dose modulation, iterative reconstruction, and/or weight-based dosing when appropriate to reduce radiation dose to as low as reasonably achievable. Dictated by: Jonathan Khan MD @ 10/19/2021 03:32:11 (Electronically Signed)
[2021-10-19] MEDS ORDERED: Piperacillin/Tazobactam 2.25 GM in Sodium Chloride 0.9% 50 ML IV ONE (04:17)
== END 2021-10-19 04:59 | disposition other institution (70) ==
LOC: JP.ED 01:55
DX: K56.2 Volvulus (principal); E03.9 Hypothyroidism, unspecified; E66.9 Obesity, unspecified; Z91.013 Allergy to seafood; Z88.5 Allergy status to narcotic agent; Z79.01 Long term (current) use of anticoagulants; Z79.899 Other long term (current) drug therapy; Z68.31 Body mass index [BMI] 31.0-31.9, adult
CPT/HCPCS: 36415; 74176; 80053; 83605; 83690; 85025; 96365; 96375; 96376; 99285; J2405; J2543; J3010; J7030

== ENCOUNTER 2024-08-07 12:18 | Emergency (ER) | payer MEDICARE ==
[2024-08-07 14:22] LABS: APPEARANCE,URINE CLOUDY (CLEAR); BILIRUBIN,URINE NEGATIVE (NEGATIVE); COLOR,URINE YELLOW (YELLOW); GLUCOSE,URINE NEGATIVE (NEGATIVE); KETONES,URINE NEGATIVE (NEGATIVE); LEUKOCYTE ESTERASE,URINE TRACE (NEGATIVE); NITRITE,URINE NEGATIVE (NEGATIVE); OCCULT BLOOD,URINE TRACE-INTACT (NEGATIVE); PROTEIN,URINE NEGATIVE (NEGATIVE); UROBILINOGEN,URINE 0.2 EU/dL (0.2-1.0)
[2024-08-07 14:35] LABS: RBC,URINE 0-5 (0-5)
[2024-08-07 14:36] LABS: AMORPHOUS SEDIMENT,URINE NOT SEEN; BACTERIA,URINE MANY; EPITHELIAL CELLS,URINE MANY; MUCUS,URINE NOT SEEN
[2024-08-07 14:38] LABS: BASOPHILS PERCENT AUTO 1.3 % (0.1-1.3); EOSINOPHILS PERCENT AUTO 2.5 % (0.0-5.4); HEMATOCRIT 36.9 % (34.3-46.0); HEMOGLOBIN 12.1 g/dL (11.2-15.5); IMMATURE GRAN PERCENT AUTO 0.3 % (0.0-0.7); LYMPHOCYTES ABSOLUTE AUTO 2.54 K/uL (0.8-3.3); LYMPHOCYTES PERCENT AUTO 31.9 % (11.4-47.7); MEAN CORPUSCULAR HEMOGLOBIN 32.9 pg (31.6-35.5); MEAN CORPUSCULAR HGB CONC 32.8 g/dL (31.6-35.5); MEAN CORPUSCULAR VOLUME 100.3 fL (81.4-99.0); MONOCYTES ABSOLUTE AUTO 0.99 K/uL (0.20-0.90); MONOCYTES PERCENT AUTO 12.5 % (3.3-12.6); NEUTROPHILS PERCENT AUTO 51.5 % (40.0-78.1); PLATELET COUNT,PLT 205 K/uL (130-375); RED BLOOD CELL COUNT 3.68 M/uL (3.77-5.24)
[2024-08-07 14:40] LABS: IMMATURE GRAN ABSOLUTE AUTO 0.02 K/uL (0.00-0.23)
[2024-08-07 15:01] LABS: ALANINE AMINOTRANSFERASE,ALT 18 U/L (12-78); ALBUMIN 3.6 g/dL (3.4-5.0); ALKALINE PHOSPHATASE 88 U/L (46-116); ASPARTATE AMNIOTRANSFERASE,AST 21 U/L (15-37); BILIRUBIN TOTAL 0.4 mg/dL (0.2-1.0); BLOOD UREA NITROGEN,BUN 23 mg/dL (7-18); CALCIUM 9.2 mg/dL (8.5-10.1); CARBON DIOXIDE,CO2 33 mmol/L (21-32); CHLORIDE,CL 104 mmol/L (100-108); EST CRCL DRUG DOSING (CG) 34.64 mL/min; ESTIMATED GFR 56 mL/min (>60); GLUCOSE RANDOM 95 mg/dL (74-106); POTASSIUM,K 4.7 mmol/L (3.6-5.2); PROTEIN TOTAL,TP 7.4 g/dL (6.4-8.2); SODIUM,NA 142 mmol/L (140-148); TROPONIN I HIGH SENSITIVITY 17.3 pg/mL (<=60.3)
[2024-08-07 15:03] LABS: ANION GAP 9.7 mmol/L (5.0-14.0)
== END 2024-08-07 16:34 | disposition home or self-care (01) ==
LOC: JP.ED 12:18
DX: N39.0 Urinary tract infection, site not specified (principal); E66.9 Obesity, unspecified; E03.9 Hypothyroidism, unspecified; I48.91 Unspecified atrial fibrillation; Z79.01 Long term (current) use of anticoagulants; Z87.820 Personal history of traumatic brain injury; Z79.899 Other long term (current) drug therapy; Z68.29 Body mass index [BMI] 29.0-29.9, adult; W19.XXXA Unspecified fall, initial encounter
CPT/HCPCS: 36415; 70450; 70450-26; 80053; 80307; 81001; 84484; 85025; 93005; 99284